=== PATIENT | female | born 1970 | race Two or more races ===

== ENCOUNTER 2024-10-31 22:52 | Inpatient (IN) | payer MEDICAID, OTHER ==
[~2024-10-31] VITALS: Ht 154.9 cm; Wt 122.3 kg
[2024-10-31 23:00] VITALS: BP 163/87; RESP 18; TEMP 98.6; O2SAT 95
--- NOTE | 2024-10-31 23:39 | DVH ---
CHEST RADIOGRAPH Indication: sob Technique: Single frontal view of the chest was obtained COMPARISON: None FINDINGS: Lines and Tubes: None Lungs: Clear Pleura: No effusion. No pneumothorax. Cardiomediastinal contours: Unremarkable IMPRESSION: No acute disease.
[2024-10-31 23:43] VITALS: PULSE 103
--- NOTE | 2024-10-31 23:43 | ED.PDOC ---
History of Present Illness HPI Comments 54 y/o morbidly obese F presents with c/o lightheadedness and facial numbness following dental implant procedure, today. Patient reports no prior history of symptoms. She states on no complications with aforementioned procedure and only being given antibiotics. Patient reports no significant history or further relevant information, such as previous head injuries or sick contacts. Patient reports being short of breath, earlier, that has resolved on its own since. She denies on having any chest pain, shortness of breath, dizziness, weakness, fever, chills, or further associated symptoms. 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[employer] APPLICATION Hx Family History Family History: Unknown Social History Smoker: Non-Smoker Alcohol: Denies ETOH Use Drugs: Denies Drug Use Lives In: Home All Other Systems: Reviewed and Negative (Comprehensive systems review obtained and negative except for what is stated in the HPI.) Physical Exam General Appearance: No Apparent Distress, Obese HEENT: Normal ENT Inspection, Pharynx Normal, TMs Normal Neck: Full Range of Motion, Non-Tender, Normal, Normal Inspection Respiratory: Chest Non-Tender, Lungs Clear, No Accessory Muscle Use, No Respiratory Distress, Normal Breath Sounds Cardiovascular: No Edema, No JVD, No Murmur, No Gallop, Normal Peripheral Pulses, Regular Rate/Rhythm Breast Exam: Deferred Gastrointestinal: No Organomegaly, Non Tender, No Pulsatile Mass, Normal Bowel Sounds, Soft Genitalia: Deferred Pelvic: Deferred Rectal: Deferred Extremities: No calf tenderness, Normal capillary refill, Normal inspection, Normal range of motion, Non-tender, No pedal edema Musculoskeletal : Apperance: Normal Neurologic: Alert, academic support assistant II-XII nml as Tested, No Motor Deficits, Normal Affect, Normal Mood, No Sensory Deficits Cerebellar Function: Normal Reflexes: Normal Skin: Dry, Normal Color, Warm Lymphatic: No Adenopathy Was a procedure done? Was a procedure done?: No EKG EKG : Pulse Rate (adult): 103 Smock: Normal Cardiac Rhythm: ST, PAC's Block: None Hypertrophy: None ST: Normal Differential Dx Considerations may include: vertigo, viral syndrome, electrolyte imbalance, dehydration, idiopathic, among others X-Ray, Labs, Meds, VS Vital Signs Date Time Temp Pulse Resp B/P (MAP) Pulse Ox O2 Delivery O2 Flow Rate FiO2 10/31/24 23:43 103 10/31/24 23:00 98.6 78 18 163/87 (112) 95 98.6 Lab Test 11/01/24 00:40 10/31/24 23:30 10/31/24 23:10 Range/Units Troponin I High Sensitivity Pending < 3 L </=34 ng/L White Blood Count 5.8 4.4-10.8 10^3/uL Red Blood Count 5.10 4.0-5.20 10^6/uL Hemoglobin 15.0 12.2-16.2 g/dL Hematocrit 43.4 36.0-46.0 % Mean Corpuscular Volume 85.2 80.0-100.0 fL Mean Corpuscular Hemoglobin 29.4 28.0-32.0 pg Mean Corpuscular Hemoglobin Concent 34.5 32.0-36.0 g/dL Red Cell Distribution Width 14.3 11.8-14.3 % Platelet Count 269 140-450 10^3/uL Mean Platelet Volume 6.9 6.9-10.8 fL Neutrophils (%) (Auto) 60.5 37.0-80.0 % Lymphocytes (%) (Auto) 25.2 10.0-50.0 % Monocytes (%) (Auto) 6.7 0.0-12.0 % Eosinophils (%) (Auto) 7.0 0.0-7.0 % Basophils (%) (Auto) 0.6 0.0-2.0 % Neutrophils # (Auto) 3.5 1.6-8.6 10 ^3/uL Lymphocytes # (Auto) 1.5 0.4-5.4 10 ^3/uL Monocytes # (Auto) 0.4 0-1.3 10 ^3/uL Eosinophils # (Auto) 0.4 0-0.8 10 ^3/uL Basophils # (Auto) 0 0-0.2 10 ^3/uL Nucleated Red Blood Cells 0.0 % Sodium Level 142 136-145 mmol/L Potassium Level 3.6 3.5-5.1 mmol/L Chloride Level 102 98-107 mmol/L Carbon Dioxide Level 30 20-31 mmol/L Anion Gap 10 5-15 Blood Urea Nitrogen 7 L 9-23 mg/dL Creatinine 0.69 0.550-1.02 mg/dL Glomerular Filtration Rate Calc 104 >90 mL/min BUN/Creatinine Ratio 10.1 10.0-20.0 Serum Glucose 107 H 74-106 mg/dL Calcium Level 9.7 8.7-10.4 mg/dL Urine Color Light-yellow Yellow Urine Clarity Clear Clear Urine pH 7.0 5.0-9.0 Urine Specific Gardner 1.002 1.001-1.035 Urine Protein Negative Negative Urine Ketones Negative Negative Urine Blood Negative Negative /uL Urine Nitrite Negative Negative Urine Bilirubin Negative Negative Urine Urobilinogen Normal Negative mg/dL Urine Leukocyte Esterase Negative Negative /uL Urine RBC None seen 0 - 4 /hpf Urine Microscopic WBC 1 0-5 /HPF Urine Squamous Epithelial Cells Few <5 /hpf Urine Bacteria None seen None Seen /hpf Urine Glucose Normal Normal mg/dL [place] [id number] Ph: [phone] DIAGNOSTIC IMAGING Diagnostic Imaging Report : [id number] Signed PATIENT: MARIA GUADALUPE VANEGAS ACCT: [id number] UNIT: [id number] : 1970 LOC: ER ROOM / BED: / AGE / SEX: 54 / F ADM STATUS: REG ER SERVICE 12 ORDERING PHYSICIAN: ASAD BULLARD MD PROCEDURE(s): CXRP - CHEST PORTABLE REASON: sob ORDER NUMBER(s): [id number], ACCESSION NUMBER(s): [id number] CHEST RADIOGRAPH Indication: sob Technique: Single frontal view of the chest was obtained COMPARISON: None FINDINGS: Lines and Tubes: None Lungs: Clear Pleura: No effusion. No pneumothorax. Cardiomediastinal contours: Unremarkable IMPRESSION: No acute disease. ATED BY: QUAN MEDRANO MD DICTATED DATE/TIME: 10/31/24 6760 SIGNED BY: QUAN MEDRANO MD SIGNED DATE/TIME: 10/31/24 2336 CC: Time of 1ST Reevaluation: 23:40 Reevaluation 1ST: Unchanged Patient Education/Counseling: Diagnosis, Treatment, Need For Follow Up Family Education/Counseling: No Family Present Additional Information Previous visits reviewed: N/A The following tests were ordered, and results were reviewed by me: EKG, troponin, CXR, UA, CBC, BMP, Additional Information was gathered from interviewing the following independent historians: N/A I reviewed and agreed with the following test results read by other providers: CXR I discussed treatment and results with medical personnel and: patient Departure 1 Departure Time of Disposition: 01:20 (Patient presented with near-syncope syncope and pa resthesias today and should be admitted. Data: 1. I ordered and reviewed the result of at least 3 labs including a CBC, BMP, and troponin. 2. I independently interpreted the following tests: EKG which shows a normal sinus and a chest x- ray which shows benign chest and a CT head which shows benign brain.Risk:This patient has a high risk of morbidity due to further diagnostic testing or treatment and may suffer from an acute cardiac, neurologic, or infectious disorder. Rationale: Patient should be admitted to the hospital for further management.) Impression: Primary Impression: Near syncope Additional Impressions: Facial paresthesia Shortness of breath Disposition: ADMITTED INPATIENT Admit to: Med Surg Condition: Serious Critical Care Note Critical Care Time?: No Stability Stability form required: No Heart Score Heart Score: Heart Score Response (Comments) Value History N/A 0 EKG N/A 0 Age N/A 0 Risk Factors N/A 0 Troponin N/A 0 Total 0 I personally scribed for ASAD BULLARD MD ([email or web address]) on 10/31/24 at 23:43. Electronically submitted by Akbar Good ([email or web address]). I personally scribed for ASAD BULLARD MD ([email or web address]) on 10/31/24 at 23:47. Electronically submitted by Akbar Good ([email or web address]). ASAD BULLARD MD October 31, 2024 23:43
[2024-10-31 23:46] LABS: Basophils # (auto) 0 10 ^3/uL (0-0.2); Basophils % (auto) 0.6 % (0.0-2.0); Eosinophils # (auto) 0.4 10 ^3/uL (0-0.8); Hematocrit 43.4 % (36.0-46.0); Lymphocytes # (auto) 1.5 10 ^3/uL (0.4-5.4); Lymphocytes % (auto) 25.2 % (10.0-50.0); Mean Corpuscular Hemoglobin 29.4 pg (28.0-32.0); Mean Corpuscular Hgb Conc. 34.5 g/dL (32.0-36.0); Mean Corpuscular Volume 85.2 fL (80.0-100.0); Monocytes # (auto) 0.4 10 ^3/uL (0-1.3); Monocytes % (auto) 6.7 % (0.0-12.0); Neutrophils # (auto) 3.5 10 ^3/uL (1.6-8.6); Neutrophils % (auto) 60.5 % (37.0-80.0); Platelet Count (auto) 269 10^3/uL (140-450); Red Cell Distribution Width 14.3 % (11.8-14.3); White Blood Cell 5.8 10^3/uL (4.4-10.8)
[2024-10-31 23:47] LABS: Urine Bacteria None Seen /hpf (None Seen)
[2024-10-31 23:54] LABS: Chloride 102 mmol/L (98-107); Potassium 3.6 mmol/L (3.5-5.1); Sodium 142 mmol/L (136-145)
[2024-10-31 23:55] LABS: Anion Gap 10 (5-15); Calcium 9.7 mg/dL (8.7-10.4); Carbon Dioxide 30 mmol/L (20-31)
[2024-11-01] LABS: BUN/Creatinine Ratio 10.1 (10.0-20.0)
[2024-11-01 00:01] LABS: Blood Urea Nitrogen 7 mg/dL (9-23); Glucose 107 mg/dL (74-106)
[2024-11-01 00:23] LABS: Urine Blood Negative /uL (Negative); Urine Clarity Clear (Clear); Urine Color Light-Yellow (Yellow); Urine Protein, UAD Negative (Negative); Urine Specific Gravity 1.002 (1.001-1.035); Urine Squamous Epithelial Cell FEW /hpf (<5); Urine Urobilinogen Normal (Negative); Urine WBC 1 /HPF (0-5)
--- NOTE | 2024-11-01 01:19 | DVH ---
CLINICAL HISTORY: near syncope TECHNIQUE: Helical imaging carried out from skull base to vertex without intravenous contrast. This e xam was performed according to our departmental dose optimization program. Up-to-date CT equipment an d radiation dose reduction techniques are utilized as appropriate. CTDIVol: 63.09 mGy DLP: 1011.12 mGy-cm WID: COMPARISON: None FINDINGS: The ventricles and subarachnoid spaces are normal in size and configuration. There is no midline braeden ft or mass effect. The early white matter interfaces are maintained. The basal cisterns are patent. Th ere is no evidence of acute intracranial hemorrhage or extra-axial fluid collection. The mastoid air cells and visualized paranasal sinuses are well-aerated. IMPRESSION: No acute intracranial abnormality.
[2024-11-01] MEDS ORDERED: ACETAMINOPHEN 325 MG TAB PO PRN (02:15)
--- NOTE | 2024-11-01 03:12 | DVH ---
Examination: NKICT CLINICAL INDICATION: near syncope/ facial numbness COMPARISON: None. CONTRAST USED: None. TECHNIQUE: Transaxial Helical CT scan of the neck has been performed without contrast under quiet br eathing. Multiplanar reconstructions were obtained. CT scan done according to ALARA (As Low As Reas onably Achievable). FINDINGS: Multiple subcentimeter bilateral cervical lymph nodes are seen. The naso and oropharyngeal air space is normal. The eustachian tube opening, torus tubarius and fossa of Rosenm�ller is normal and do not show any mass. The pterygoid muscles, masseter and temporalis muscles are normal. The parapharyngeal space shows normal position and density and fat within. The carotid and jugular vessels cannot be commented upon. Both parotid glands show normal density within. The floor of mouth shows normal muscles. Both submandibular glands are normal. The larynx shows normal vocal cord within. No evidence of any supraglottic or infraglottic mass lesion. The paralaryngeal space, pyriform fossa, vallecula and epiglottis are normal. No obvious mass in post cricoid region noted. The thyroid gland is normal. No significant cervical lymphadenopathy. Both sternocleidomastoid muscles are normal. IMPRESSION: 1. Multiple subcentimeter bilateral cervical lymph nodes. 2. No obvious mass is seen. Electronically Signed 11/01/2024 03:10 Ashley Aguillon
[2024-11-01] MEDS: LOSARTAN POTASSIUM 50 MG TAB PO SCH (03:21)
[2024-11-01] MEDS ORDERED: CARVEDILOL 3.125 MG TAB PO SCH (10:00)
[2024-11-01] MEDS ORDERED: ENOXAPARIN SOD 40 MG/0.4 ML SYRINGE SC SCH (10:00)
--- NOTE | 2024-11-01 10:31 | ECG ---
[facility] Test Date: 2024-10-31 Test Time: 23:15:11 Pat Name: MARIA GUADALUPE VANEGAS Department: ER Room: [address] [place] [address] A Gender: F Beam Department Supervisor: JAN : 1970 Requested By: ASAD BULLARD Order Number: [id number] Reading MD: Moiz Oscar Measurements Intervals Union Rate: 103 P: 2 WI: 158 QRS: -12 QRSD: 90 T: 27 QT: 334 QTc: 437 Interpretive Statements Sinus tachycardia Atrial premature complexes in couplets Anteroseptal infarct, old Electronically Signed On 11-05-2024 21:59:14 PDT by Moiz Oscar Please click the below link to view image of tracing.
== END 2024-11-01 03:40 | disposition left against medical advice (07) | DRG 58 ==
LOC: ER 22:52 → OVERFLOW 11-01 02:14
PROVIDERS: ATTEND Emergency Medicine
DX: R20.2 Paresthesia of skin (principal); I11.0 Hypertensive heart disease with heart failure; I50.9 Heart failure, unspecified; Z68.43 Body mass index [BMI] 50.0-59.9, adult; R55 Syncope and collapse; Z53.21 Procedure and treatment not carried out due to patient leaving prior to being seen by health care provider; E66.01 Morbid (severe) obesity due to excess calories; Z90.49 Acquired absence of other specified parts of digestive tract
CPT/HCPCS: 36415; 70450; 70490; 71045; 80048; 81001; 83880; 84484; 85025; 93005; G0378